=== PATIENT | female | born 1975 | race Hispanic/Latino ===

== ENCOUNTER 2017-04-26 10:11 | Emergency (ER) | payer SELFPAY ==
--- NOTE | 2017-04-26 13:02 | CT ---
CT ORBITS WITHOUT CONTRAST: Date: 04/26/17 HISTORY: Left eye injury. Long Eddy her eye pop this morning. COMPARISON: None. FINDINGS: There is scleral banding of the left orbit, which appears posteriorly displaced. The is choroidal he morrhage bilaterally. There is also hemorrhage extending into the vitreous body, as well as anterior and posterior chambers. Normal left lens is not appreciated. No retrobulbar hematoma. No significan t exophthalmos. No fracture of the bony orbit. Nasal bones are intact. Soft tissues are unremarkable . IMPRESSION: Posterior displacement of the scleral buckle with bilateral lentiform hemorrhage along the medial an d lateral dickinson indicating choroidal detachment as well hemorrhage within the vitreous as well as an terior and posterior chambers of left orbit. Ophthalmology consultation recommended. POS: [facility]
[2017-04-26] MEDS ORDERED: ceFAZolin Sodium 1 GM VIAL ONE (15:03)
[2017-04-26] MEDS ORDERED: Ondansetron HCl/PF 4 MG/2 ML Vial ONE (15:49)
== END 2017-04-26 16:10 | disposition short-term general hospital (02) ==
LOC: ERS 10:11
DX: H59.312 Postprocedural hemorrhage of left eye and adnexa following an ophthalmic procedure (principal)
CPT/HCPCS: 70480; 90471; 96365; 96372; 96375; J0690; J1170; J2405